=== PATIENT | female | born 1935 ===

== ENCOUNTER 2017-10-06 20:14 | Emergency (ER) | payer OTHER ==
[~2017-10-06] VITALS: Ht 170.2 cm; Wt 61.2 kg
[2017-10-06] MEDS ORDERED: DIOVAN160 M1 (21:08)
[2017-10-06] MEDS ORDERED: SYNTHROID88 MCG (21:09)
[2017-10-06] MEDS ORDERED: AMLODIPINE BESY10 MG (21:09)
[2017-10-06] MEDS ORDERED: ZANTAC300 MG (21:09)
[2017-10-06] MEDS ORDERED: LIPITOR20 MG (21:09)
[2017-10-06] MEDS ORDERED: PLAVIX75 MG (21:09)
[2017-10-07] MEDS ORDERED: RANITIDINE HCL300 MG PO (04:34)
[2017-10-07] MEDS ORDERED: AIRBORNE EFFER1 EACH PO (04:34)
[2017-10-07] MEDS ORDERED: OSEL75CA PO (04:34)
== END 2017-10-07 04:57 | disposition home or self-care (01) ==
LOC: ER 20:14
DX: J09.X2 Influenza due to identified novel influenza A virus with other respiratory manifestations (principal); E86.0 Dehydration; B34.9 Viral infection, unspecified; R50.9 Fever, unspecified; R11.2 Nausea with vomiting, unspecified

== ENCOUNTER 2018-01-31 09:58 | Emergency (ER) | payer OTHER ==
[~2018-01-31] VITALS: Ht 172.7 cm; Wt 59.4 kg
[~2018-01-31 09:58] MED LIST: AIRBORNE EFFER1 EACH PO; AMLODIPINE BESY10 MG; DIOVAN160 M1; LIPITOR20 MG; OSEL75CA PO; PLAVIX75 MG; RANITIDINE HCL300 MG PO; SYNTHROID88 MCG; ZANTAC300 MG
[2018-01-31] MEDS ORDERED: ZITHROMAX500 MG PO (13:58)
[2018-01-31] MEDS ORDERED: TESSALON PERLE100 M1 PO (13:58)
== END 2018-01-31 14:20 | disposition home or self-care (01) ==
LOC: ER 09:58
DX: J06.9 Acute upper respiratory infection, unspecified (principal)